=== PATIENT | female | born 1980 | race Caucasian/White ===

== ENCOUNTER 2020-07-29 14:06 | Emergency (ER) | payer MEDICAID ==
[~2020-07-29] VITALS: Ht 162.6 cm; Wt 59.1 kg
[~2020-07-29 14:06] MED LIST: PHEN-824 PO
[2020-07-29 14:20] VITALS: BP 128/70
--- NOTE | 2020-07-29 14:42 | NUR ---
pt is 40 yo female c/o burning with urination, increased urgency, frequency x2 weeks, would also like STD check, her cheated on her 06/23. Pt is waiting quietly in room to be evaluated by provider
[2020-07-29] MEDS ORDERED: CEFTRIAXONE 500 MG VIAL IM ONE (15:00)
[2020-07-29 15:09] LABS: CLARITY,URINE SLIGHTLY CLOUDY (Clear); COLOR,URINE YELLOW (Yellow); GLUCOSE, URINE NEGATIVE (Neg); KETONES,URINE NEGATIVE (Neg); LEUKOCYTE ESTERASE ,URINE SMALL (Neg); NITRITES, URINE NEGATIVE (Neg); OCCULT BLOOD,URINE NEGATIVE (Neg); PROTEIN,URINE NEGATIVE (Neg); UROBILINOGEN,URINE 0.2 E.U/dL (0.2-1.0)
[2020-07-29 15:10] LABS: URINE HCG NEGATIVE (NEG)
[2020-07-29] MEDS ORDERED: CefTRIAXone 1000mg IM Kit (w/lidocaine diluent) IM ONE (15:10)
[2020-07-29 15:11] LABS: UA COLLECTION TYPE CLN CATCH MIDSTREAM
[2020-07-29 15:17] LABS: BACTERIA,URINE 2+ /HPF (Neg); MUCUS STRANDS MANY /LPF (Neg); RBC,URINE 0-2 /HPF (0-2); SQUAMOUS EPITHELIAL CELL,UR MANY /LPF (FEW); WBC,URINE 20-30 /HPF (0-4)
[2020-07-29] MEDS ORDERED: NITR100C6 PO (15:30)
[2020-07-29] MEDS ORDERED: DOXY100C77 PO (15:30)
== END 2020-07-29 15:45 | disposition home or self-care (01) ==
LOC: ER 14:06
DX: N39.0 Urinary tract infection, site not specified (principal); G43.909 Migraine, unspecified, not intractable, without status migrainosus; Z72.89 Other problems related to lifestyle; Z59.0 Homelessness; Z79.2 Long term (current) use of antibiotics; Z79.899 Other long term (current) drug therapy
CPT/HCPCS: 36415; 81001; 81025; 87491; 87591; 96372; 99283; J0696